=== PATIENT | female | born 1990 | race African-American/Black ===

== ENCOUNTER 2016-11-02 18:48 | Emergency (ER) | payer MEDICAID ==
[~2016-11-02] VITALS: Ht 154.9 cm; Wt 86.0 kg
[2016-11-02] MEDS ORDERED: BACITRACIN ZINC OINT UDPKT TOP NR (22:15)
[2016-11-02] MEDS ORDERED: IBUPROFEN 600MG TABLET PO NR (22:15)
[2016-11-02] MEDS ORDERED: LIDOCAINE HCL 1%/EPI 1:200,000 30 ML VIAL MC NR (22:15)
[2016-11-02] MEDS ORDERED: AMOXICILLIN/POTASSIUM CLAVULANATE 875/125MG TAB PO ONE (23:15)
[2016-11-02 23:29] VITALS: BP 129/73
[2016-11-02] MEDS ORDERED: TETANUS, DIPHTHERIA, PERTUSSIS VAC/PF 0.5ML (>7YR OLD) IM ONE (23:30)
== END 2016-11-02 23:33 | disposition home or self-care (01) ==
LOC: ER 22:25
DX: S00.551A Superficial foreign body of lip, initial encounter (principal); J45.909 Unspecified asthma, uncomplicated; W45.8XXA Other foreign body or object entering through skin, initial encounter; Y93.89 Activity, other specified; Y92.89 Other specified places as the place of occurrence of the external cause; Y99.8 Other external cause status
CPT/HCPCS: 10120; 81025; 90471; 90715; 99284; Z7610; 20520

== ENCOUNTER 2022-07-17 11:30 | Emergency (ER) | payer MEDICAID, OTHER ==
[~2022-07-17] VITALS: Ht 167.6 cm; Wt 113.0 kg
[2022-07-17] MEDS ORDERED: KETOROLAC 60MG/2ML VIAL IM STA (14:03)
[2022-07-17] MEDS ORDERED: ONDANSETRON HCL 4MG/2ML INJ IM STA (14:03)
[2022-07-17] MEDS ORDERED: ONDA4TAB50 MT (14:14)
[2022-07-17] MEDS ORDERED: GUAI10LI14 PO (14:14)
[2022-07-17 14:43] VITALS: BP 142/70
== END 2022-07-17 14:52 | disposition home or self-care (01) ==
LOC: ER 12:24
DX: J02.9 Acute pharyngitis, unspecified (principal); Z20.822 Contact with and (suspected) exposure to COVID-19
CPT/HCPCS: 71045; 87426; 87804; 96372; 99284; C9803; J1885; J2405

== ENCOUNTER 2024-03-11 04:04 | Emergency (ER) | payer OTHER ==
[~2024-03-11] VITALS: Ht 167.6 cm; Wt 73.0 kg
[~2024-03-11 04:04] MED LIST: ATOR20TA65 MT; GUAI10LI14 PO; INSLIS SUBCUT; INSU100I28 SQ; ONDA4TAB50 MT
[2024-03-11 04:18] VITALS: O2SAT 97
[2024-03-11] MEDS ORDERED: MORPHINE SULFATE 4 MG/ML INJ (FOR IV/IM USE) IV ONE (07:15)
[2024-03-11 07:46] LABS: BASOPHILS % 1.4 % (0.0-2.0); EOSINOPHILS % 4.9 % (0.0-5.0); HEMOGLOBIN. 11.4 g/dL (12.0-16.0); LYMPHOCYTES % 26.4 % (20.0-50.0); MEAN CORPUSCULAR HEMOGLOBIN 26.8 pg (28.0-32.0); MEAN CORPUSCULAR HGB CONC 31.8 g/dL (31.0-37.0); MEAN CORPUSCULAR VOLUME 84.3 fL (81.0-99.0); MEAN PLATELET VOLUME 9.7 fl (7.4-10.4); MONOCYTES % 7.5 % (2.0-8.0); NEUTROPHILS % 59.8 % (40.0-76.0); PLATELET 283 x1000/uL (130-400); RED BLOOD CELL COUNT 4.27 mill/uL (4.2-5.4); RED CELL DISTRIBUTION WIDTH 14.2 % (11.6-14.6); WHITE BLOOD COUNT 4.9 x1000/uL (4.5-11.0)
[2024-03-11 07:54] LABS: CHLORIDE 101 mEq/L (98-107); POTASSIUM 3.9 mEq/L (3.5-5.1); SODIUM 136 mEq/L (136-145)
[2024-03-11 07:55] LABS: CALCIUM 9.7 mg/dL (8.7-10.4); CARBON DIOXIDE 26 mEq/L (21-32)
[2024-03-11 07:56] LABS: HCG SCREEN NEGATIVE
[2024-03-11 08:00] LABS: CREATININE 0.9 mg/dL (0.6-1.0); GLUCOSE 325 mg/dL (70-105); UREA NITROGEN BLOOD 13 mg/dL (9-23)
[2024-03-11 08:07] LABS: TROPONIN I HIGH SENSITIVITY < 4 ng/L (3.0-34)
[2024-03-11] MEDS: MORPHINE SULFATE 4 MG/ML INJ (FOR IV/IM USE) IV NR (09:55)
[2024-03-11 10:46] VITALS: BP 107/64; PULSE 75; RESP 18; TEMP 36.55848; O2SAT 99
== END 2024-03-11 10:55 | disposition short-term general hospital (02) ==
LOC: ER 04:04 → CANBEDREQ 09:47 → ER 10:55
DX: R07.89 Other chest pain (principal); J45.909 Unspecified asthma, uncomplicated; E11.9 Type 2 diabetes mellitus without complications; I10 Essential (primary) hypertension; Z79.899 Other long term (current) drug therapy; Z98.890 Other specified postprocedural states
CPT/HCPCS: 80048; 82962; 84703; 85025; 84484; 36415; 71045; 93005; 96374; 99285; J2270; Z7610 ×2